=== PATIENT | male | born 1975 | race Caucasian/White ===

== ENCOUNTER 2021-12-03 10:37 | Inpatient (IN) | payer MEDICAID ==
[~2021-12-03] VITALS: Ht 170.2 cm; Wt 79.5 kg
[2021-12-03] MEDS ORDERED: ondansetron/PF 4mg/2ml inj IV ONE (10:55)
[2021-12-03] MEDS ORDERED: normal saline 1000ML IV soln IVB ONE (10:55)
[2021-12-03] MEDS ORDERED: LORazepam 2 mg/ml vial IV ONE ×2 (10:55→14:30)
[2021-12-03 11:40] LABS: BASOPHILS % (AUTO) 0.6 % (0-1); EOSINOPHILS % (AUTO) 0.4 % (0-6); HEMATOCRIT 39.8 % (42.0-52.0); HEMOGLOBIN 13.5 g/dl (14.0-17.9); LYMPHOCYTES # (AUTO) 0.6 X10'3 (1.1-4.8); LYMPHOCYTES % (AUTO) 13.5 % (21-51); MEAN CORPUSCULAR HEMOGLOBIN 32.8 PG (27.0-31.0); MEAN CORPUSCULAR HGB CONC 33.9 g/dL (33.0-36.5); MEAN CORPUSCULAR VOLUME 96.8 FL (78-98); MEAN PLATELET VOLUME 8.8 FL (7.4-10.4); MONOCYTES # (AUTO) 0.4 X10'3 (0-0.9); MONOCYTES % (AUTO) 9.7 % (2-12); NEUTROPHILS # (AUTO) 3.2 X10'3 (1.8-7.7); NEUTROPHILS % (AUTO) 75.8 % (42-75); PLATELET COUNT 66 X10'3 (140-440); RED BLOOD COUNT 4.11 X10'6 (4.70-6.10); RED CELL DISTRIBUTION WIDTH 14.2 % (11.5-14.5); WHITE BLOOD COUNT 4.2 X10'3 (4.5-11.0)
--- NOTE | 2021-12-03 12:01 | NUR ---
TO/FROM CT WITHOUT INCIDENT.
[2021-12-03 12:02] LABS: ALANINE AMINOTRANSFERASE 149 U/L (12-78); ALBUMIN 3.6 G/DL (3.4-5.0); ALKALINE PHOSPHATASE 139 IU/L (46-116); ANION GAP 15 (8-16); ASPARTATE AMINO TRANSFERASE 286 U/L (10-37); BILIRUBIN,TOTAL 3.6 MG/DL (0.1-1.0); BLOOD UREA NITROGEN 9 MG/DL (7-18); BUN/CREATININE RATIO 8.7 (5.4-32.0); CALCIUM 9.7 MG/DL (8.5-10.1); CHLORIDE 100 MMOL/L (99-107); CREATININE 1.04 MG/DL (0.60-1.10); GLUCOSE 139 MG/DL (70-104); LIPASE 316 U/L (73-393); POTASSIUM 3.7 MMOL/L (3.5-5.1); SODIUM 138 MMOL/L (135-145); TOTAL PROTEIN 7.3 G/DL (6.4-8.2); eGFR 76 ML/MIN
[2021-12-03 12:25] LABS: ETHANOL < 0.010 GM/DL (0.0-0.010)
[2021-12-03] MEDS ORDERED: normal saline 1000ml 1,000 ML IV ONE (14:30)
[2021-12-03] MEDS ORDERED: adenosine 3mg/ml 2ml vial IV ONE ×4 (15:40→16:30)
--- NOTE | 2021-12-03 16:10 | NUR ---
1447- PTS HEART RATE FOUND TO BE 170-180S, REPEAT EKG DONE. 1448- MD AT BEDSIDE, CONFIRMED SVT. 1554- 6MG ADENOSINE IVP GIVEN 1556- 12MG ADENOSINE IVP GIVEN. PT CONVERTED BACK TO SINUS TACH, CONFIRMED BY RHYTHM STRIP. 3RD LITER OF FLUIDS INFUSING.
[2021-12-03] MEDS ORDERED: acetaminophen 325mg tablet PO PRN ×2 (16:25)
[2021-12-03] MEDS ORDERED: POTASSIUM BICARB 20meq eff tab 20 MEQ TABLET.EFF PO PRN ×2 (16:25)
[2021-12-03] MEDS ORDERED: magnesium 2GM in 50ml NS 50 ML IV PRN (16:25)
[2021-12-03] MEDS ORDERED: magnesium Cl slow-release 64mg tablet PO PRN (16:25)
[2021-12-03] MEDS ORDERED: diphenhydrAMINE 25mg capsule PO PRN (16:25)
[2021-12-03] MEDS ORDERED: potassium CL 10mEq/100ml bag 100 ML IV PRN (16:25)
[2021-12-03] MEDS ORDERED: LORazepam 2 mg/ml vial IV PRN (16:25)
[2021-12-03] MEDS ORDERED: HYDROcodone/acetaminophen 5mg/325mg tablet PO PRN (16:25)
[2021-12-03] MEDS ORDERED: acetaminophen 650mg rectal suppository RC PRN (16:25)
[2021-12-03] MEDS ORDERED: haloperidol lactate 5mg/ml inj IM PRN (16:25)
[2021-12-03] MEDS ORDERED: bisacodyl 10mg suppository rectal RC PRN (16:25)
[2021-12-03] MEDS ORDERED: HYDROcodone/acetaminophen 10/325mg tab PO PRN (16:25)
[2021-12-03] MEDS ORDERED: ondansetron/PF 4mg/2ml inj IV PRN (16:25)
[2021-12-03] MEDS ORDERED: mag hydrox/Alum hydrox/simeth 30ml oral suspension PO PRN (16:25)
[2021-12-03] MEDS ORDERED: morphine 2 MG/ML inj. syringe IV PRN ×2 (16:25)
[2021-12-03] MEDS ORDERED: dextrose 50%-water 50ml dispensing syringe IV PRN (16:25)
[2021-12-03] MEDS ORDERED: magnesium hydroxide 30ml (MOM) UD suspension PO PRN (16:25)
[2021-12-03] MEDS ORDERED: magnesium 4gm in 100ml NS 100 ML IV PRN (16:25)
[2021-12-03] MEDS ORDERED: PERFLUTREN PROTEIN-A MICROSPHR (Optison) 0.22 MG/ML 3ML VIAL IV ONE (16:25)
[2021-12-03] MEDS: normal saline 1000ml 1,000 ML IV SCH (16:25)
--- NOTE | 2021-12-03 16:38 | NUR ---
1621- PT HR AGAIN 190S, RPT EKG DONE. 1624- 12MG IV ADENOSINE GIVEN, NO CHANGE 1626- 12MG IV ADEOSINE GIVEN, HR NOW 80S SR. 1628- REPEAT EKG DONE
[2021-12-03 17:03] LABS: CLARITY,URINE CLOUDY (Clear); COLOR,URINE YELLOW (Yellow); GLUCOSE, URINE NEGATIVE (Neg); KETONES,URINE NEGATIVE (Neg); LEUKOCYTE ESTERASE ,URINE NEGATIVE (Neg); NITRITES, URINE NEGATIVE (Neg); OCCULT BLOOD,URINE NEGATIVE (Neg); PH,URINE 8.5 (4.8-8.0); PROTEIN,URINE NEGATIVE (Neg); UA COLLECTION TYPE CLN CATCH MIDSTREAM
[2021-12-03 17:10] LABS: AMORPHOUS PHOSPHATES 2+; BACTERIA,URINE NONE SEEN /HPF (Neg); MUCUS STRANDS NONE SEEN /LPF (Neg); RBC,URINE 0-2 /HPF (0-2); SQUAMOUS EPITHELIAL CELL,UR FEW /LPF (FEW); WBC,URINE NONE SEEN /HPF (0-4)
[2021-12-03 18:03] LABS: HEMOGLOBIN A1C 5.5 % (4.5-6.2)
[2021-12-03] MEDS ORDERED: NO HOME MEDS (18:31)
[2021-12-03] MEDS: docusate sod 100mg capsule PO SCH (19:03)
[2021-12-03] MEDS: K and/or MAG REPLACEMENT MC SCH (19:05)
[2021-12-03] MEDS: heparin, porcine 5000 units/ml vial SQ SCH (20:00)
[2021-12-03] MEDS: thiamine 100mg/ml 2ml inj. IV SCH (20:35)
[2021-12-03] MEDS: lactulose 20gm/30ml cup PO SCH (20:35)
[2021-12-03] MEDS: LORazepam 2 mg/ml vial IV PRN (21:57)
[2021-12-03] MEDS: propranolol 10mg tablet PO SCH (22:05)
[2021-12-03 23:51] LABS: HIV ANTIBODY 1&2 RAPID NON-REACTIVE (Neg)
--- NOTE | 2021-12-04 01:56 | NUR ---
Patient converted back into SVT. Patient stable, normotensive, denies chest pain. Kashif kayd, verbal order for metoprolol 5mg IV one time given.
[2021-12-04] MEDS ORDERED: metoprolol tartrate 1mg/ml inj IV ONE ×2 (02:00→02:30)
--- NOTE | 2021-12-04 02:28 | NUR ---
Called Dr Rowland regarding no change in patient HR. Verbal order for second dose of 5mg IV metoprolol.
[2021-12-04] MEDS: normal saline 1000ml 1,000 ML IV SCH ×3 (02:39→19:03)
[2021-12-04] MEDS: LORazepam 2 mg/ml vial IV PRN ×5 (03:09→22:11)
--- NOTE | 2021-12-04 03:17 | NUR ---
Spoke with Dr Rowland regarding pt remaining in SVT. Telephone order 5mg IVP Cardizem recieved. Pt denying chest pain, dizziness, or SOB. Stable condition, really wants food.
[2021-12-04] MEDS ORDERED: diltiazem 5mg/ml 5ml inj. IV ONE (03:20)
[2021-12-04 07:04] LABS: BASOPHILS % (AUTO) 0.3 % (0-1); EOSINOPHILS # (AUTO) 0.1 X10'3 (0-0.9); EOSINOPHILS % (AUTO) 1.8 % (0-6); HEMATOCRIT 40.3 % (42.0-52.0); HEMOGLOBIN 13.5 g/dl (14.0-17.9); LYMPHOCYTES # (AUTO) 0.8 X10'3 (1.1-4.8); LYMPHOCYTES % (AUTO) 21.2 % (21-51); MEAN CORPUSCULAR HEMOGLOBIN 32.3 PG (27.0-31.0); MEAN CORPUSCULAR HGB CONC 33.4 g/dL (33.0-36.5); MEAN CORPUSCULAR VOLUME 96.7 FL (78-98); MEAN PLATELET VOLUME 8.2 FL (7.4-10.4); MONOCYTES # (AUTO) 0.6 X10'3 (0-0.9); MONOCYTES % (AUTO) 14.2 % (2-12); NEUTROPHILS # (AUTO) 2.5 X10'3 (1.8-7.7); NEUTROPHILS % (AUTO) 62.5 % (42-75); RED BLOOD COUNT 4.17 X10'6 (4.70-6.10); RED CELL DISTRIBUTION WIDTH 14.4 % (11.5-14.5)
[2021-12-04 07:12] LABS: PLATELET COUNT 38 X10'3 (140-440)
[2021-12-04 07:31] LABS: ALANINE AMINOTRANSFERASE 105 U/L (12-78); ALBUMIN 3.1 G/DL (3.4-5.0); ALKALINE PHOSPHATASE 126 IU/L (46-116); ANION GAP 12 (8-16); ASPARTATE AMINO TRANSFERASE 196 U/L (10-37); BILIRUBIN,TOTAL 4.6 MG/DL (0.1-1.0); BLOOD UREA NITROGEN 6 MG/DL (7-18); BUN/CREATININE RATIO 7.9 (5.4-32.0); CALCIUM 8.2 MG/DL (8.5-10.1); CHLORIDE 106 MMOL/L (99-107); CREATININE 0.76 MG/DL (0.60-1.10); GLUCOSE 82 MG/DL (70-104); HDL CHOLESTEROL 72 MG/DL (35-60); LDL CHOLESTEROL 74 MG/DL (50-100); MAGNESIUM 1.5 MG/DL (1.5-2.4); POTASSIUM 3.8 MMOL/L (3.5-5.1); SODIUM 141 MMOL/L (135-145); TOTAL CARBON DIOXIDE 23.2 MMOL/L (24-32); eGFR > 90 ML/MIN
[2021-12-04 07:54] LABS: ALBUMIN/GLOBULIN RATIO 0.9 (1.1-1.5); CHOL/HDL RATIO 2.2 (0.00-4.99); CHOLESTEROL 155 MG/DL (0-200); TOTAL PROTEIN 6.6 G/DL (6.4-8.2); TRIGLYCERIDES 44 MG/DL (20-135)
[2021-12-04] MEDS: lactulose 20gm/30ml cup PO SCH ×4 (08:00→20:00)
[2021-12-04] MEDS: heparin, porcine 5000 units/ml vial SQ SCH ×2 (08:00→20:00)
[2021-12-04] MEDS ORDERED: folic acid 1mg/0.2ml inj IV SCH (08:00)
[2021-12-04] MEDS: K and/or MAG REPLACEMENT MC SCH ×2 (08:00→19:30)
[2021-12-04] MEDS: docusate sod 100mg capsule PO SCH ×2 (08:00→20:25)
[2021-12-04] MEDS: thiamine 100mg/ml 2ml inj. IV SCH ×3 (08:18→20:27)
[2021-12-04] MEDS: propranolol 10mg tablet PO SCH ×3 (08:18→20:25)
[2021-12-04] MEDS: pantoprazole 40MG/NS 100ML BAG 100 ML IV SCH ×2 (08:19→20:27)
--- NOTE | 2021-12-04 08:48 | NUR ---
NO REPORTED DISCOMFORT AT THIS TIME,VISITOR AT BEDSIDE.
--- NOTE | 2021-12-04 09:53 | NUR ---
HR 146, denies chest discomfort.Given ativan 2mg iv,paged Dr. Escudero.
[2021-12-04] MEDS ORDERED: diltiazem 5mg/ml 5ml inj. IV STA (09:59)
--- NOTE | 2021-12-04 10:00 | NUR ---
DR. CERNA AT BEDSIDE.
[2021-12-04] MEDS: folic acid 1mg tablet PO SCH (10:21)
[2021-12-04 15:00] VITALS: BP 130/87
--- NOTE | 2021-12-04 15:20 | NUR ---
pt oriented to room and call light A&O in no acute distress. vitals stable at this time
--- NOTE | 2021-12-04 16:42 | NUR ---
[place] documentation: I have reviewed and agree with all interventions, assessments performed and documented by Felisha COX. [place] Medication Administration: For this medication-pass time frame, all medication were reviewed, dispensed, administered and documented per hospital policy by Felisha COX.
[2021-12-04 18:00] VITALS: BP 172/86
--- NOTE | 2021-12-04 18:22 | NUR ---
report given to Amanda COX
--- NOTE | 2021-12-04 20:30 | NUR ---
1914 Patient scored 12 on alcohol assessment. Confused to place, events and time. States he is in this building because "they are moving the population around." Frequent trying to get out of bed to the bathroom, very unsteady on his feet. Did get up with RN and his father to bathroom for BM. Having urinary incontinence, bedding, gown and underwear changed. Patient bed alarm set and frequent monitoring Patient currently sleeping.
[2021-12-04 22:00] VITALS: BP 141/86
--- NOTE | 2021-12-04 22:45 | NUR ---
2211 patient scored 15 on alcohol assessment, sweating, needing bedding changed, tremor and anxiety. Very impusive trying again to get out of bed to use bathroom. Patient confused still, A&O x2. PRN ativan administered currently patient sleeping.
[2021-12-05] MEDS: lactulose 20gm/30ml cup PO SCH ×3 (01:26→14:00)
[2021-12-05 02:00] VITALS: BP 138/84
--- NOTE | 2021-12-05 02:21 | NUR ---
patient seems to be more coherent, A&Ox3. Confused to date, thinking its but aware it is November. Patient still wanting to get out of bed on his own for bathroom, continue to reinforce use of urinal and needing assistance. Patient has bed alarm on, RN also padded side rails d/t coming in for seizure. Currently patient scoring a 5 on alcohol assessment. Blood glucose 79, patient asked for some juice. Will continue to monitor.
[2021-12-05] MEDS: normal saline 1000ml 1,000 ML IV SCH (04:15)
[2021-12-05] MEDS: LORazepam 2 mg/ml vial IV PRN (04:27)
--- NOTE | 2021-12-05 04:27 | NUR ---
Patient set of bed alarm, standing at bedside, had an episode of urinary incontinence on the floor and removed his tele monitor. Patient started pulling at his IV stating he needed to go home. RN redirected patient to bed, performed alcohol assessment, patient scored 13, administered PRN Ativan. Patient currently in bed, juice at bedside, IV infusing and secured with coban, tele reapplied and bed alarm set.
--- NOTE | 2021-12-05 05:08 | NUR ---
Patient trying to get out of bed again for bathroom, RN reinforced need to use urinal. Patient agitated and states he doesn't understand why he cant just get up. RN instructed that due to alcohol withdraw he is getting Ativan, and he just received 2mg, that can cause patient to be at risk for falls, he also has a very low platelet count of 38, and he is at very high risk of bleeding. If he was to fall walking to the bathroom, even with assistance he is at high risk for a bleed. For safety reasons until patient more steady on his feet and not getting Ativan so often he will need to use urinal with assistance. Patient states "ok fine" but still upset. Stating "Im leaving today, my is coming home from [place] and my daughter is coming home and I cant be here." RN instructed that it is only 0500 and I will pass all info on to the day shift nurse but the doctor isn't in until later in the morning either. And also advise patient to talk to his family before he leaves. Very risky for him to leave and risk another seizure. Patient states he has never had a seizure before, and RN reminded him he had one before coming to the ED. He then stated "I had two". Patient currently resting in bed, bed alarm set, intermittent confusion, impulsivity and agitation/anxiety.
[2021-12-05 06:23] LABS: BASOPHILS % (AUTO) 0.4 % (0-1); EOSINOPHILS # (AUTO) 0.1 X10'3 (0-0.9); EOSINOPHILS % (AUTO) 3.4 % (0-6); HEMATOCRIT 38.3 % (42.0-52.0); HEMOGLOBIN 13.1 g/dl (14.0-17.9); LYMPHOCYTES # (AUTO) 0.8 X10'3 (1.1-4.8); LYMPHOCYTES % (AUTO) 23.1 % (21-51); MEAN CORPUSCULAR HGB CONC 34.2 g/dL (33.0-36.5); MEAN CORPUSCULAR VOLUME 96.5 FL (78-98); MEAN PLATELET VOLUME 8.9 FL (7.4-10.4); MONOCYTES # (AUTO) 0.5 X10'3 (0-0.9); MONOCYTES % (AUTO) 13.4 % (2-12); NEUTROPHILS # (AUTO) 2.2 X10'3 (1.8-7.7); NEUTROPHILS % (AUTO) 59.7 % (42-75); RED BLOOD COUNT 3.97 X10'6 (4.70-6.10); WHITE BLOOD COUNT 3.7 X10'3 (4.5-11.0)
[2021-12-05 06:29] LABS: PLATELET COUNT 42 X10'3 (140-440)
--- NOTE | 2021-12-05 06:39 | NUR ---
Patient in room U 3018. I have received report from Amanda COX and had the opportunity to ask questions and assume patient care.Patient resting in bed and asked about walking around today. I told him no as he was very unsteady yesterday and impulsive. Bed alarm on. I told him PT would work with him and get him out of bed and we would reevaluate walking around after PT eval.
[2021-12-05 06:40] LABS: ALANINE AMINOTRANSFERASE 82 U/L (12-78); ALBUMIN 2.9 G/DL (3.4-5.0); ALKALINE PHOSPHATASE 120 IU/L (46-116); ANION GAP 8 (8-16); ASPARTATE AMINO TRANSFERASE 134 U/L (10-37); BILIRUBIN,TOTAL 4.1 MG/DL (0.1-1.0); BLOOD UREA NITROGEN 6 MG/DL (7-18); BUN/CREATININE RATIO 7.6 (5.4-32.0); CALCIUM 8.1 MG/DL (8.5-10.1); CHLORIDE 106 MMOL/L (99-107); CREATININE 0.79 MG/DL (0.60-1.10); GLUCOSE 99 MG/DL (70-104); MAGNESIUM 1.6 MG/DL (1.5-2.4); POTASSIUM 3.5 MMOL/L (3.5-5.1); SODIUM 138 MMOL/L (135-145); eGFR > 90 ML/MIN
[2021-12-05 06:47] LABS: ALBUMIN/GLOBULIN RATIO 0.8 (1.1-1.5); PHOSPHORUS 2.9 MG/DL (2.3-4.5); TOTAL PROTEIN 6.5 G/DL (6.4-8.2)
[2021-12-05 07:00] VITALS: BP 166/96
[2021-12-05] MEDS ORDERED: adenosine 3mg/ml 2ml vial IV ONE (07:00)
[2021-12-05] MEDS: docusate sod 100mg capsule PO SCH (07:40)
[2021-12-05] MEDS: folic acid 1mg tablet PO SCH (07:40)
[2021-12-05] MEDS: propranolol 10mg tablet PO SCH ×2 (07:42→13:46)
[2021-12-05] MEDS: thiamine 100mg/ml 2ml inj. IV SCH ×2 (07:42→13:46)
[2021-12-05] MEDS: pantoprazole 40MG/NS 100ML BAG 100 ML IV SCH (07:53)
[2021-12-05] MEDS: heparin, porcine 5000 units/ml vial SQ SCH (07:53)
[2021-12-05] MEDS: K and/or MAG REPLACEMENT MC SCH (08:00)
[2021-12-05 11:00] VITALS: BP 145/89
[2021-12-05 12:27] LABS: HBSAG SCREEN Negative (Negative); HEP A AB, IGM Negative (Negative); HEPATITIS C ANTIBODY 0.3 s/co ratio (0.0-0.9)
--- NOTE | 2021-12-05 14:20 | NUR ---
Page Sent promotional table spacer PAGER ID: [phone] MESSAGE: [id number]. DAy. Pt would like to know if you still plan on discharging him. Kia /Felisha @[phone]
[2021-12-05] MEDS ORDERED: PROP10TA10 PO (14:30)
[2021-12-05] MEDS ORDERED: FOLI1TAB27 PO (14:30)
[2021-12-05] MEDS ORDERED: thiamine tablet PO (14:30)
[2021-12-05 15:00] VITALS: BP 140/40
--- NOTE | 2021-12-05 16:09 | NUR ---
Patient was DC to home in the care of his father. PIV was removed with cannula intact. RX were called into [facility] on [address] at pt request. DC instructions and warning s/s were reviewed with pt and father and they verbalized understanding. Pt was strongly advised to stop drinking and to not take nsaids due to low platelets and increased risk of bleeding. Patient was wheeled to front of hospital and got into father's car. Patient was alert, oriented, and appropriate at time of DC.
[2021-12-08] MEDS ORDERED: thiamine 100mg tablet PO SCH (08:00)
== END 2021-12-05 15:53 | disposition home or self-care (01) | DRG 53 ==
LOC: ER 10:38 → ED HOLD 16:47 → EDBEDREQ 12-04 14:05 → PCU 3S 12-04 15:00
PROVIDERS: ADMIT Family Medicine; ATTEND Family Medicine
PROC: 4A10X4Z Monitoring of Central Nervous Electrical Activity, External Approach (ICD-10-PCS; principal; 2021-12-04)
DX: G40.509 Epileptic seizures related to external causes, not intractable, without status epilepticus (principal); D61.818 Other pancytopenia; E72.20 Disorder of urea cycle metabolism, unspecified; K70.30 Alcoholic cirrhosis of liver without ascites; I47.1 Supraventricular tachycardia; F10.239 Alcohol dependence with withdrawal, unspecified; I10 Essential (primary) hypertension; K76.0 Fatty (change of) liver, not elsewhere classified
CPT/HCPCS: 36415; 70450; 71045; 76700; 80053; 80061; 80320; 81001; 82140; 82948; 83036; 83690; 83735; 84100; 84443; 84484; 85025; 85610; 86703; 86705; 86706; 86709; 86803; 87081; 87340; 93005; 93306; 95816; 96361; 96374; 96375; 96376; 97161; 97530; 99285; C9113; G0378; J0153; J2060; J3411; J3490; J7030